=== PATIENT | male | born 1980 | race Caucasian/White ===

== ENCOUNTER 2023-12-20 08:23 | Emergency (ER) | payer MEDICARE, SELFPAY ==
[2023-12-20] VITALS (23 sets, daily range): BP systolic 79–127; BP diastolic 33–81; PULSE 86–118; RESP 21–37; TEMP 36.4; O2SAT 97
--- NOTE | 2023-12-20 08:15 | DI.RAD_ITS ---
Exam(s) XR PELVIS AP EXAM: XR PELVIS AP CLINICAL HISTORY: trauma. TECHNIQUE: 2D digital imaging was performed.One images were obtained. COMPARISON: No exams were available for comparison FINDINGS: BONES: There acute displaced comminuted fractures involving both the right and left superior and infe rior pubic rami. There is a longitudinally oriented fracture involving the posterior aspect of the l eft iliac bone. No bony destructive lesion is seen. JOINTS: No dislocation present. No joint space narrowing is present. SOFT TISSUE: There is contrast seen within the urinary bladder. No evidence of contrast extravasatio n is seen to suggest urinary bladder injury. This is a limited single AP view however. IMPRESSION: Fractures involving both the right and left pubic bones and the left iliac bone as described above. Please see the CT scan of the chest abdomen and pelvis for complete details. DATA REPOSITORY: RADIATION DOSE DELIVERED:
--- NOTE | 2023-12-20 08:15 | DI.RAD_ITS ---
Exam(s) XR PORTABLE CHEST AP EXAM: XR PORTABLE CHEST AP CLINICAL HISTORY: trauma TECHNIQUE: 2D digital imaging was performed of the chest. One image was obtained. An AP view was ob tained. COMPARISON: No exams were available for comparison FINDINGS: MEDIASTINUM: Normal. HEART: Normal. PULMONARY VASCULATURE: Normal. LUNGS: Airspace opacities are present throughout the right hemithorax consistent with contusions. Th e left lung appears clear and well expanded. PLEURAL SPACE: There is a right hemopneumothorax best appreciated on the CT scan of the chest. BONE:Within normal limits for the patient's age. There is a fracture of the posterior aspect of the r ight 7th rib. There is a nondisplaced fracture involving the lateral aspect of the right 6th rib. OTHER FINDINGS:Normal. IMPRESSION: 1. Airspace opacities in the right lung suggestive of contusions. 2. The patient's known right pneumohemothorax is best appreciated on the CT scan of the chest. 3. Right 6th and 7th rib fractures. DATA REPOSITORY: RADIATION DOSE DELIVERED:
--- NOTE | 2023-12-20 08:15 | DI.RAD_ITS ---
Exam(s) XR FEMUR LT EXAM: XR FEMUR LT CLINICAL HISTORY: trauma. TECHNIQUE: 2D digital imaging was performed of the left femur. Four images were obtained. AP and lat eral views were obtained. COMPARISON: No exams were available for comparison FINDINGS: BONES: The acute fractures involving the pubic bones are seen. There are comminuted mildly displaced . The longitudinally oriented fracture involving the left posterior iliac bone is also noted. No fe moral fracture is identified. No bony destructive lesion is seen. Visualized portion of knee and hip joints are unremarkable. SOFT TISSUE: There is contrast seen within the urinary bladder. No evidence of contrast extravasatio n is seen on the limited images. IMPRESSION: 1. No evidence of a femoral fracture. 2. Displaced pelvic bone fractures. Please refer to the CT scan of the abdomen and pelvis and x-ray of the pelvis for further details. DATA REPOSITORY: RADIATION DOSE DELIVERED:
[2023-12-20] MEDS: Omnipaque 350 MG/ML 100 ML BTL IJ (08:36)
[2023-12-20] MEDS: Normal Saline - Diluent 50 ML VIAL IJ (08:39)
--- NOTE | 2023-12-20 08:55 | DI.CT_ITS ---
Exam(s) CT HEAD CERVICAL SPINE WO EXAM: CT HEAD CERVICAL SPINE WO CLINICAL HISTORY: trauma. TECHNIQUE: Imaging Protocol: Axial computed tomography images with coronal and sagittal reformatted images were created and reviewed COMPARISON: CT CT THORACIC LUMBAR SPINE REC from 12/20/2023 FINDINGS: CT Head: Ventricles and Extra axial spaces: Normal in size and morphology for the patient's age. Hemorrhage: None. Cerebral parenchyma: Normal. Midline shift: None. Brainstem/Cerebellum: Normal. Calvarium: Normal. Visualized Paranasal sinuses/Mastoids: There is a fluid level in the left maxillary sinus. The remai jessica visualized paranasal sinuses are clear. The mastoid air cells are clear. Soft Tissues: Unremarkable. CT Cervical Spine: Bones: There is an acute fracture of the posterior aspect of the right transverse process of C7 with extension into the right superior facet. The fracture does appear to involve the anterior aspect of the right pedicle. There is also fracture which is nondisplaced involving the left C7 facet.. Soft Tissues: Unremarkable. IMPRESSION: 1. No acute intracranial process. 2. Air-fluid level in the left maxillary sinus without obvious fracture. Please correlate clinically . A maxillofacial CT may be obtained if there is continued clinical concern. 3. Fractures at the C7 level. There is an acute fracture involving the posterior aspect of the right C7 transverse process into the superior facet and the anterior aspect of the right pedicle. There i s also a fracture which is nondisplaced involving the left C7 facet. 4. Findings were discussed with the emergency department at 9:35 a.m. on 12/20/2023. RADIATION DOSE DELIVERED: 1,550.29mGy.cm Total DLP DATA REPOSITORY: All CT scans at this facility are submitted to the National Radiology Data Registry (NRDR) Dose Index Registry (DIR) with the [employer] (A[employer]). RADIATION OPTIMIZATION: All CT scans at this facility use at least one of these dose optimization te chniques: automated exposure control; mA and/or kV adjustment per patient size (includes targeted exa ms where dose is matched to clinical indication); or iterative reconstruction.
--- NOTE | 2023-12-20 09:00 | DI.CT_ITS ---
Exam(s) CT CHEST/ABD/PEL W CT THORACIC LUMBAR SPINE REC EXAM: CT CHEST/ABD/PEL W and CT lumbar and thoracic spine recons CLINICAL HISTORY: trauma TECHNIQUE: Imaging Protocol: Axial computed tomography images with coronal and sagittal reformatted images were created and reviewed CONTRAST MATERIAL: Intravenous: Omnipaque 350 contrast volume:100 mL Oral: No COMPARISON: No priors for comparison. FINDINGS: The examination is limited due to patient motion artifact. CHEST: Tracheobronchial tree: Patent where visualized. Pulmonary parenchyma: There are airspace opacities in the right upper and right lower lobes. More fo felicia consolidations are seen in the right lower lobe. These are most suggestive contusions. Air cyst s are seen in right lower lobe most suggestive of pneumatoceles. There is a small area of atelectasi s seen in the medial aspect of the left lower lobe. There is a moderate size right pneumothorax and moderate right pleural effusion. There is layering hyperdense material in the right hemithorax consi stent with a hemothorax. Visualized thyroid gland: Unremarkable. Mediastinum and Charity: No dominant adenopathy or fluid collection. The esophagus is unremarkable. Pleura: There is no left pleural effusion or left pneumothorax. Heart: The heart is not dilated. No coronary artery calcifications are seen. No pericardial effusion. Pulmonary arteries: Due to the timing of the bolus and motion artifact, peripheral pulmonary artery e valuation is limited. No large central pulmonary embolus is present. Aorta: Thoracic aorta non-dilated. No evidence of dissection. Mild atherosclerosis. Lymph nodes: Within normal limits. Soft tissues: Mild gynecomastia. Bones:There is a displaced angulated fracture of the medial aspect of the left scapula. The fracture extends into the supraclavicular scapula. There are fractures involving the posterior aspects of th e right 11th, 10th, and 7th ribs. CT thoracic spine recons: There is a nondisplaced fracture of the T9 spinous process. No other acute fractures or subluxations are seen. ABDOMEN: Liver: Normal density. No measurable mass. Portal, Superior Mesenteric, and Splenic Veins: Unremarkable. Gallbladder and Biliary Tract: No radiodense calculus or dilation. Pancreas: Normal density, no abnormal calcifications or inflammatory process. Spleen: There is heterogeneous enhancement seen in the periphery of the inferior spleen. Splenic lac eration should be considered. This area is compromised due to patient motion artifact. No definite perisplenic hematoma is seen. Adrenals: No masses seen. Kidneys: Normal size, contour and axis. No radiodense stones or obstructive uropathy. No masses seen. Abdominal Aorta: Abdominal portion non-dilated. Atherosclerosis. Bowel: No obstruction or bowel wall thickening. No evidence of appendicitis. Peritoneal Cavity: No ascites, collection or mesenteric inflammatory response. No free air. Lymph Nodes: Within normal limits. Bones: Within normal limits for the patient's age. There is a fracture of the posterior aspect of th e left iliac bone with extension into the left SI joint which is mildly widened. There is a comminut ed mildly displaced fracture involving the left sacral ala. There may also be a small nondisplaced f racture involving the right sacral ala with extension into the joint space. (Series 6, image [id number]. T here is a displaced comminuted fracture of the left inferior pubic ramus and the left pubic bone with extension into the medial aspect of the superior pubic ramus on the left. The fracture extends into the symphysis pubis. There is a comminuted displaced fracture involving the right pubic bone with e xtension into the medial aspect of the right superior pubic ramus. There is a comminuted displaced f racture involving the right inferior pubic ramus. The hip superior well maintained without evidence of dislocation. Soft Tissues: There is a hematoma seen in the pelvis adjacent to the pubic bones bilaterally. There is some mass effect on the adjacent urinary bladder. The urinary bladder is decompressed but appears grossly intact. The hematoma on the right extends along the right inguinal region.. CT lumbar spine recons: There is normal alignment of the lumbar spine. No acute fracture or subluxat ion is identified. PELVIS: Bladder: Please see above under bones Reproductive Organs: Unremarkable as visualized. Lymph Nodes: Within normal limits. Bones: Please see above under bones. IMPRESSION: 1. The examination is limited due to patient motion artifact. 2. Moderate sized right hemopneumothorax. 3. Right upper and right lower lobe pulmonary opacities most suggestive of pulmonary contusions. Air cysts seen within the right lower lobe consistent with pneumatoceles. 4. Multiple right rib fractures. 5. Unremarkable CT scan of the chest. Nondisplaced T9 spinous process fracture. 6. Multiple pelvic fractures as described above. Findings involve the left iliac bone and both pubic bones. There is widening mildly of the left sacroiliac joint with a left sacral ala fracture. 7. Associated hematoma in the pelvis with mild mass effect on the urinary bladder. The urinary bladd er appears intact. 8. Mild edema seen in the retro peritoneal soft tissues without obvious vascular injury. No contrast extravasation is seen. The findings are predominantly on the left and right urinary collecting syst em injury cannot be excluded. Delayed imaging of the abdomen and pelvis should be considered for fur ther evaluation. 9. Heterogeneous appearance of the spleen. Splenic laceration/contusion should be considered. No pe risplenic hematoma is seen. Evaluation is compromised due to patient motion artifact. 10. No evidence of a lumbar spine fracture. 11. Please see the CT scan of the neck for further details. 12. Findings were discussed with the emergency department on 12/20/2023. RADIATION DOSE DELIVERED: 1,145.19mGy.cm Total DLP DATA REPOSITORY: All CT scans at this facility are submitted to the National Radiology Data Registry (NRDR) Dose Index Registry (DIR) with the [employer] (ACR). RADIATION OPTIMIZATION: All CT scans at this facility use at least one of these dose optimization te chniques: automated exposure control; mA and/or kV adjustment per patient size (includes targeted exa ms where dose is matched to clinical indication); or iterative reconstruction.
[2023-12-20 09:10] LABS: Abs Immature Grans 0.15 10^3/uL (0.0-0.06); Absolute Basophil Count 0.05 10^3/uL (0.0-0.2); Absolute Eosinophil Count 0.09 10^3/uL (0.0-0.7); Absolute Lymphocyte Count 1.31 10^3/uL (1.2-3.4); Absolute Monocyte Count 0.19 10^3/uL (0.1-0.8); Basophils % 0.4; Eosinophils % 0.8; HGB 11.8 g/dL (13.5-17.5); Immature Grans % 1.3; Lymphocytes % 11.2; MCH 31.6 pg (27.0-33.0); MCHC 33.7 % (32.0-36.0); MCV 94 fL (80-95); MPV 10.3 fL (8.0-11.0); Monocytes % 1.6; Neutrophils % 84.7; Platelet Count 185 10^3/uL (130-400); RBC 3.74 10^6/uL (4.36-5.78); RDW 12.1 % (11.8-14.1); RDW-SD 41.6 fL; WBC 11.66 10^3/uL (4.4-10.8)
[2023-12-20] MEDS: Normal Saline 1,000 ML 1000 ML IV (09:10)
[2023-12-20 09:12] LABS: Absolute Neutrophil Count 9.88 10^3/uL (1.2-6.7)
[2023-12-20] MEDS: fentaNYL 100 MCG PATCH TD (09:13)
[2023-12-20 09:22] LABS: INR 1.2 (0.9-1.1); Prothrombin Time 11.5 sec (9.1-11.1)
[2023-12-20 09:54] LABS: ALT 260 U/L (16-63); AST 276 U/L (15-37); Albumin 2.6 g/dL (3.4-5.0); Alkaline Phosphatase 47 U/L (46-116); Anion Gap 9.8 mmol/L (3-11); BUN 25 mg/dL (7-18); Bilirubin, Total 0.4 mg/dL (0.2-1.0); CO2 24.2 mmol/L (21.0-32.0); CREATININE 1.4 mg/dL (0.70-1.30); Calcium 7.9 mg/dL (8.5-10.1); Chloride 104 mmol/L (98-107); Estimated GFR 64.36 (mL/min/1.73m2); Glucose 218 mg/dL (74-106); Potassium 3.4 mmol/L (3.5-5.1); Sodium 138 mmol/L (136-145); Total Protein 5.2 g/dL (6.4-8.2)
[2023-12-20 09:55] LABS: ETHANOL BLOOD < 3.0 mg/dL (<10)
[2023-12-20 09:56] LABS: Lipase 290 U/L (16-77)
--- NOTE | 2023-12-20 10:38 | NUR.NOTE ---
Nursing Note: Handoff given to Galina medic and report called to [facility]. Pt left with two units of blood running, on NRB, C-Collared, pelvic binder with VS as documented. Unable to obtain phone number to inform family of patient's situation.
--- NOTE | 2023-12-20 10:39 | NUR.NOTE ---
Nursing Note: Per Dr. Zaman code blood was performed. VS remained stable throughout and patient showed no signs of reaction. Pt was in middle of second unit and first almost done as [facility] picked him up for transfer.
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
--- NOTE | 2023-12-27 09:04 | NUR.NOTE ---
Acessed Pt chart to obtain the accepting Dr's name for the transport as well as the required personal needed.
== END 2023-12-20 10:41 | disposition short-term general hospital (02) ==
LOC: ER 10:10
PROVIDERS: Emergency Provider Emergency Medicine
DX: S27.2XXA Traumatic hemopneumothorax, initial encounter (principal); S27.0XXA Traumatic pneumothorax, initial encounter; R09.02 Hypoxemia; S27.321A Contusion of lung, unilateral, initial encounter; S32.111A Minimally displaced Zone I fracture of sacrum, initial encounter for closed fracture; S32.512A Fracture of superior rim of left pubis, initial encounter for closed fracture; S32.511A Fracture of superior rim of right pubis, initial encounter for closed fracture; S42.192A Fracture of other part of scapula, left shoulder, initial encounter for closed fracture; S22.41XA Multiple fractures of ribs, right side, initial encounter for closed fracture; S12.600A Unspecified displaced fracture of seventh cervical vertebra, initial encounter for closed fracture; S00.01XA Abrasion of scalp, initial encounter; S30.1XXA Contusion of abdominal wall, initial encounter; V49.9XXA Car occupant (driver) (passenger) injured in unspecified traffic accident, initial encounter
CPT/HCPCS: 73552; 74177; 80053; 83690; 86850; 86900; 86901; 86920; 96361; 96374; 99285; 70450; 71045; 71260; 72125; 72170; 80320; 85025; 85610; 85730; J3490; P9016